=== PATIENT | male | born 1955 | race Caucasian/White ===

== ENCOUNTER → 2024-12-22 08:14 | Outpatient (REF) | payer OTHER, SELFPAY | LOC: PAVMRI 08:14 | PROVIDERS: ATTENDING PHYSICIAN Specialist; FAMILY PHYSICIAN Nurse Practitioner Family | DX: G35 Multiple sclerosis (principal) | CPT/HCPCS: 70553; 72156; A9575 ==

== ENCOUNTER → 2025-07-31 08:30 | Outpatient (REF) | payer OTHER, SELFPAY | LOC: PAVMRI 08:30 | PROVIDERS: ATTENDING PHYSICIAN Psychiatry & Neurology Neurology; FAMILY PHYSICIAN Internal Medicine | DX: G35 Multiple sclerosis (principal) | CPT/HCPCS: 72157; A9575 ==

== ENCOUNTER → 2025-10-05 18:29 | Outpatient (REF) | payer OTHER, SELFPAY | LOC: MRI 18:29 | PROVIDERS: ATTENDING PHYSICIAN Psychiatry & Neurology Neurology; FAMILY PHYSICIAN Internal Medicine | DX: G35.D Multiple sclerosis, unspecified (principal) | CPT/HCPCS: 70553; 72156; A9575 ==